=== PATIENT | female | born 1960 | race Caucasian/White ===

== ENCOUNTER → 2016-05-03 | Outpatient (CLI) | payer MEDICARE ==
[~2016-05-03] MED LIST: 'PARAFON FORTE500 M1 PO; ASPIRIN DELAYE325 MG PO; ASPIRIN325 M2 PO; BIAXIN500 MG PO; CLARITIN10 MG PO; COMBIVENT1 ARO IH; CYMBALTA30 MG PO; CYMBALTA60 MG PO; DOXYCYCLINE100 M3 PO; DULCOLAX5 MG PO; LEVAQUIN750 MG PO; LIPITOR40 MG PO; LISINOPRIL10 MG PO; METFORMIN500 MG PO; NAPROSYN500 MG PO; NEURONTIN300 MG PO; OMEPRAZOLE MAGN20 MG PO; OYSTER SHELL CA1 TAB PO; PEN-VEE K500 MG PO; PRAVACHOL40 MG PO; PROAIR HFA0.09 MG/AC INH; SEROQUEL XR150 MG PO; SEROQUEL XR400 MG PO; SEROQUEL XR50 MG PO; SYNTHROID RP0.1 MG PO; SYNTHROID,LEVO50 MCG PO; SYNTHROID0.025 MG PO; TRAMADOL HCL50 MG PO; TRAZODONE50 MG PO; VITAMIN D22000 UNIT PO; ZANTAC150 MG PO; ZESTRIL,PRINIVI20 MG PO; ZITHROMAX Z PA250 MG PO
[2016-05-03 11:30] LABS: BASO # 0.1 10*3/uL (0.0-0.1); BASO % 1.1 % (0.0-1.0); EOS # 0.2 10*3/uL (0.0-0.4); EOS % 2.6 % (1.0-4.0); HEMATOCRIT 44.5 % (37.0-47.0); HEMOGLOBIN 14.7 g/dl (12.0-16.0); LYMPH # 2.9 10*3/uL (1.3-4.4); LYMPH % 40.9 % (27.0-41.0); MEAN CELL VOLUME 84.3 fl (81.0-99.0); MEAN CORPUSCULAR HGB 27.8 pg (27.0-31.0); MEAN PLATELET VOLUME 11.1 fl (9.6-12.3); MONO # 0.5 10*3/uL (0.1-1.0); MONO % 6.7 % (3.0-9.0); NEUT # 3.4 10*3/uL (2.3-7.9); NEUT % 48.6 % (47.0-73.0); PLATELET COUNT AUTOMATED 148 10*3/uL (130-400); RED BLOOD COUNT 5.28 10*6/uL (4.10-5.10); RED CELL DISTRI WIDTH 13.2 % (0-14.5)
[2016-05-03 12:00] LABS: ALBUMIN 3.8 gm/dl (3.1-4.5); ALKALINE PHOSPHATASE 132 U/L (45-117); BILIRUBIN, DIRECT < 0.1 mg/dL (0.0-0.2); BILIRUBIN, TOTAL 0.3 mg/dl (0.2-1.0); BUN 18 mg/dl (7-24); CARBON DIOXIDE 29 mmol/L (21-32); CHLORIDE 106 mmol/L (98-107); CHOLESTEROL 146 mg/dL (<200); EST GLOM FILT AFRICAN AMERICAN > 60 ml/min; GLUCOSE 91 mg/dL (65-99); HDL CHOLESTEROL 33 mg/dl (40-60); LDL CHOLESTEROL 78 mg/dL (9-159); POTASSIUM 4.3 mmol/L (3.5-5.1); SGOT/AST 14 IU/L (3-35); SGPT/ALT 26 U/L (12-78); SODIUM 142 mmol/L (136-145); TOTAL PROTEIN 7.5 gm/dL (6.4-8.2); TRIGLYCERIDES 176 mg/dl (<150); VLDL CHOLESTEROL 35 mg/dL (6-40)
== END | disposition home or self-care (01) ==
LOC: LAB 11:16
PROVIDERS: Specialist
DX: Z79.899 Other long term (current) drug therapy (principal)

== ENCOUNTER 2021-06-07 14:59 | Inpatient (IN) | payer MEDICARE ==
[~2021-06-07] VITALS: Ht 162.6 cm; Wt 101.7 kg
[2021-06-07 15:06] VITALS: BP 155/90
[2021-06-07 15:47] LABS: BASO # 0.1 10*3/uL (0.0-0.1); BASO % 0.7 % (0.0-1.0); EOS % 0.2 % (1.0-4.0); HEMATOCRIT 46.9 % (37.0-47.0); LYMPH # 1.5 10*3/uL (1.3-4.4); LYMPH % 12.3 % (27.0-41.0); MEAN CELL VOLUME 88.8 fl (81.0-99.0); MEAN CORPUSCULAR HGB 29.5 pg (27.0-31.0); MEAN CORPUSCULAR HGB CONC 33.3 g/dl (33.0-37.0); MEAN PLATELET VOLUME 10.5 fl (9.6-12.3); MONO # 0.4 10*3/uL (0.1-1.0); MONO % 2.9 % (3.0-9.0); NEUT # 9.9 10*3/uL (2.3-7.9); NEUT % 83.6 % (47.0-73.0); PLATELET COUNT AUTOMATED 186 10*3/uL (130-400); RED BLOOD COUNT 5.28 10*6/uL (4.10-5.10); RED CELL DISTRI WIDTH 14.5 % (0-14.5); WHITE BLOOD COUNT 11.9 10*3/uL (4.8-10.8)
[2021-06-07 16:04] LABS: ALKALINE PHOSPHATASE 112 U/L (45-117); BUN 15 mg/dl (7-24); CHLORIDE 104 mmol/L (98-107); CREATININE 0.99 mg/dL (0.55-1.02); LIPASE 358 U/L (73-393); POTASSIUM 3.8 mmol/L (3.5-5.1); SGOT/AST 16 IU/L (3-35); SGPT/ALT 21 U/L (12-78); SODIUM 136 mmol/L (136-145); TOTAL PROTEIN 8.4 gm/dL (6.4-8.2)
[2021-06-07 16:19] LABS: BILIRUBIN Negative (Negative); BLOOD 1+ (Negative); CLARITY Clear (Clear); COLOR Yellow (Yellow); GLUCOSE Negative (Negative); KETONE Negative (Negative); LEUKO ESTERASE Negative (Negative); NITRITE Negative (Negative); SPECIFIC GRAVITY 1.025 (1.001-1.030)
[2021-06-07 16:30] LABS: MUCOUS TRACE
[2021-06-07 18:45] VITALS: BP 172/99
[2021-06-07] MEDS ORDERED: REMERON15 M2 PO (18:48)
[2021-06-07 20:00] VITALS: BP 179/103; BP 180/82
[2021-06-08] VITALS: BP 176/79
[2021-06-08 06:43] LABS: BASO % 0.3 % (0.0-1.0); HEMATOCRIT 47.5 % (37.0-47.0); LYMPH % 8.7 % (27.0-41.0); MEAN CELL VOLUME 89.5 fl (81.0-99.0); MEAN CORPUSCULAR HGB 29.2 pg (27.0-31.0); MEAN CORPUSCULAR HGB CONC 32.6 g/dl (33.0-37.0); MEAN PLATELET VOLUME 10.9 fl (9.6-12.3); MONO # 0.1 10*3/uL (0.1-1.0); MONO % 0.6 % (3.0-9.0); NEUT % 89.7 % (47.0-73.0); PLATELET COUNT AUTOMATED 201 10*3/uL (130-400); RED BLOOD COUNT 5.31 10*6/uL (4.10-5.10); RED CELL DISTRI WIDTH 14.4 % (0-14.5); WHITE BLOOD COUNT 11.2 10*3/uL (4.8-10.8)
[2021-06-08 06:53] LABS: ACT PARTIAL THROMBO TIME 30.1 SECONDS (20.0-32.1)
[2021-06-08 07:00] LABS: ALKALINE PHOSPHATASE 105 U/L (45-117); BUN 10 mg/dl (7-24); CHLORIDE 104 mmol/L (98-107); CHOLESTEROL 364 mg/dL (<200); CREATININE 0.97 mg/dL (0.55-1.02); FREE T4 0.31 ng/dl (0.76-1.46); LDL CHOLESTEROL 275 mg/dL (9-159); POTASSIUM 3.6 mmol/L (3.5-5.1); SGOT/AST 20 IU/L (3-35); SGPT/ALT 20 U/L (12-78); SODIUM 136 mmol/L (136-145); TOTAL PROTEIN 7.9 gm/dL (6.4-8.2); TRIGLYCERIDES 283 mg/dl (<150)
[2021-06-08 07:47] LABS: VITAMIN D, 25-HYDROXY 13.3 ng/mL (30-100)
[2021-06-08 08:00] VITALS: BP 152/86
[2021-06-08 11:42] VITALS: BP 156/98
[2021-06-08] MEDS ORDERED: DELZICOL400 M2 PO (14:59)
[2021-06-08] MEDS ORDERED: PREDNISONE10 MG PO (14:59)
[2021-06-08] MEDS ORDERED: METRONIDAZOLE500 M1 PO (14:59)
[2021-06-08] MEDS ORDERED: CIPRO500 MG PO (14:59)
[2021-06-08 16:00] VITALS: BP 174/91
== END 2021-06-08 17:40 | disposition home or self-care (01) | DRG 392 ==
LOC: ED 14:59 → EDHOLD 17:25 → 5E 18:37
PROVIDERS: Emergency Medicine; Family Medicine; ADMIT Student in an Organized Health Care Education/Training Program; ATTEND Student in an Organized Health Care Education/Training Program
DX: K52.9 Noninfective gastroenteritis and colitis, unspecified (principal); K62.5 Hemorrhage of anus and rectum; M54.50 Low back pain, unspecified; F12.90 Cannabis use, unspecified, uncomplicated; F17.200 Nicotine dependence, unspecified, uncomplicated; R31.21 Asymptomatic microscopic hematuria; N18.2 Chronic kidney disease, stage 2 (mild); E11.22 Type 2 diabetes mellitus with diabetic chronic kidney disease; I12.9 Hypertensive chronic kidney disease with stage 1 through stage 4 chronic kidney disease, or unspecified chronic kidney disease; E11.65 Type 2 diabetes mellitus with hyperglycemia; G89.29 Other chronic pain; Z90.49 Acquired absence of other specified parts of digestive tract; Z98.891 History of uterine scar from previous surgery; Z79.51 Long term (current) use of inhaled steroids; Z79.82 Long term (current) use of aspirin; Z79.899 Other long term (current) drug therapy

== ENCOUNTER → 2023-10-05 | Outpatient (CLI) | payer MEDICARE ==
[~2023-10-05] MED LIST changes: -ASPIRIN325 M2 PO; +CETIRIZINE10 MG PO; +CIPRO500 MG PO; +DELZICOL400 M2 PO; +GOOD SENSE ASP325 MG PO; +HUMALOG100 UNIT/1 SC; +HYDROCHLOROTHIA25 M1 PO; +LANTUS SOL100 UNIT/1 SC; +LEVOXYL125 MCG PO; +LIPITOR80 MG PO; +LISINOPRIL20 MG PO; +MELATONIN10 M2 PO; +METRONIDAZOLE500 M1 PO; +MUCINEX DM 30/61 TAB PO; +PREDNISONE10 MG PO; +REMERON15 M2 PO; +VITAMIN D350 MC2 PO
== END | disposition home or self-care (01) ==
LOC: RAD 12:50
PROVIDERS: ATTEND Family Medicine
DX: S91.331A Puncture wound without foreign body, right foot, initial encounter (principal); X58.XXXA Exposure to other specified factors, initial encounter; Y93.89 Activity, other specified; Y92.89 Other specified places as the place of occurrence of the external cause; Y99.8 Other external cause status